=== PATIENT | male | born 1990 | race Caucasian/White ===

== ENCOUNTER → 2020-12-30 | Outpatient (CLI) | payer OTHER | LOC: KOH-I 11:00 | DX: M91.11 Juvenile osteochondrosis of head of femur [Legg-Calve-Perthes], right leg (principal); M16.11 Unilateral primary osteoarthritis, right hip | CPT/HCPCS: 72192 ==

== ENCOUNTER → 2021-02-11 | Outpatient (CLI) | payer OTHER ==
[~2021-02-11] MED LIST: IBUPROFEN200 MG PO; ZOLOFT100 MG PO; [UNRECOGNIZED DRUG - OTHER]
[2021-02-11 12:31] LABS: HEMOGLOBIN 15.6 gm/dl (14.0-17.5); RED BLOOD COUNT 5.07 M/UL (4.20-5.50); WHITE BLOOD COUNT 4.8 K/UL (4.5-11.0)
[2021-02-11 13:12] LABS: BUN/CREATININE RATIO 15 (0-10)
== END ==
LOC: OPSV2 11:00 → EDSTATUS 11:00 → OPSV2 11:34
PROVIDERS: Orthopaedic Surgery
DX: Z01.818 Encounter for other preprocedural examination (principal)
CPT/HCPCS: 80048; 85025; 87081; 93005

== ENCOUNTER → 2021-04-29 | Outpatient (CLI) | payer OTHER ==
[2021-04-29 14:00] LABS: HEMOGLOBIN 15.9 gm/dl (14.0-17.5); RED BLOOD COUNT 5.1 M/UL (4.20-5.50); WHITE BLOOD COUNT 9.3 K/UL (4.5-11.0)
[2021-04-29 14:20] LABS: BUN/CREATININE RATIO 17 (0-10)
== END ==
LOC: OPSV2 12:30 → EDSTATUS 12:30 → OPSV2 13:01
PROVIDERS: Orthopaedic Surgery
DX: Z01.818 Encounter for other preprocedural examination (principal); M91.11 Juvenile osteochondrosis of head of femur [Legg-Calve-Perthes], right leg
CPT/HCPCS: 36415; 80048; 81001; 85025; 93005